=== PATIENT | male | born 1945 | race Caucasian/White ===

== ENCOUNTER 2018-11-25 08:17 | Emergency (ER) | payer MEDICARE, OTHER ==
[~2018-11-25] VITALS: Ht 175.3 cm; Wt 86.8 kg
[~2018-11-25 08:17] MED LIST: NO HOME MEDS
[2018-11-25 08:32] VITALS: BP 170/90
== END 2018-11-25 09:26 | disposition home or self-care (01) ==
LOC: ER 08:18
DX: M17.11 Unilateral primary osteoarthritis, right knee (principal)
CPT/HCPCS: 73564; 99283

== ENCOUNTER 2022-07-07 08:31 | Emergency (ER) | payer OTHER, MEDICARE ==
[~2022-07-07] VITALS: Ht 175.3 cm; Wt 84.1 kg
[2022-07-07 11:25] LABS: EOSINOPHILS # (AUTO) 0.2 X10'3 (0-0.9); EOSINOPHILS % (AUTO) 0.2 % (0-6); HEMATOCRIT 38.6 % (42.0-52.0)
[2022-07-07 11:31] LABS: BASOPHILS # (AUTO) 0.2 X10'3 (0-0.2); BASOPHILS % (AUTO) 0.2 % (0-1); HEMOGLOBIN 12.2 g/dl (14.0-17.9); LYMPHOCYTES # (AUTO) 3.9 X10'3 (1.1-4.8); MEAN CORPUSCULAR HGB CONC 31.6 g/dL (33.0-36.5); MEAN CORPUSCULAR VOLUME 85.4 FL (78-98); MEAN PLATELET VOLUME 8.9 FL (7.4-10.4); MONOCYTES # (AUTO) 0.8 X10'3 (0-0.9); MONOCYTES % (AUTO) 0.8 % (2-12); NEUTROPHILS % (AUTO) 94.8 % (42-75); PLATELET COUNT 195 X10'3 (140-440); RED BLOOD COUNT 4.51 X10'6 (4.70-6.10); RED CELL DISTRIBUTION WIDTH 19.4 % (11.5-14.5)
[2022-07-07 11:32] LABS: ALANINE AMINOTRANSFERASE 40 U/L (12-78); ALBUMIN 3.7 G/DL (3.4-5.0); ALBUMIN/GLOBULIN RATIO 0.8 (1.1-1.5); ALKALINE PHOSPHATASE 181 IU/L (46-116); ANION GAP 11 (8-16); ASPARTATE AMINO TRANSFERASE 49 U/L (10-37); BILIRUBIN,TOTAL 0.9 MG/DL (0.1-1.0); BLOOD UREA NITROGEN 15 MG/DL (7-18); BUN/CREATININE RATIO 16.3 (5.4-32.0); CALCIUM 9.5 MG/DL (8.5-10.1); CHLORIDE 102 MMOL/L (99-107); CREATININE 0.92 MG/DL (0.60-1.10); GLUCOSE 115 MG/DL (70-104); LIPASE 238 U/L (73-393); POTASSIUM 4.2 MMOL/L (3.5-5.1); SODIUM 142 MMOL/L (135-145); TOTAL CARBON DIOXIDE 29.5 MMOL/L (24-32); TOTAL PROTEIN 8.3 G/DL (6.4-8.2); eGFR 80 ML/MIN
[2022-07-07 11:53] LABS: WHITE BLOOD COUNT 98.1 X10'3 (4.5-11.0)
[2022-07-07 11:57] LABS: TOTAL CELLS COUNTED 100
[2022-07-07 11:59] LABS: PLATELET ESTIMATE NORMAL
[2022-07-07 12:03] LABS: ANISOCYTOSIS 2+; HYPOCHROMASIA 1+; NUCLEATED RED BLOOD CELLS 2 /100WBC (0-0); POLYCHROMASIA FEW; STOMATOCYTES FEW
[2022-07-07] MEDS ORDERED: iohexol 300mg/ml 100ml inj. ONE (13:51)
[2022-07-07 14:08] LABS: CLARITY,URINE CLEAR (Clear); COLOR,URINE YELLOW (Yellow); GLUCOSE, URINE NEGATIVE (Neg); KETONES,URINE NEGATIVE (Neg); LEUKOCYTE ESTERASE ,URINE NEGATIVE (Neg); NITRITES, URINE NEGATIVE (Neg); OCCULT BLOOD,URINE NEGATIVE (Neg); PROTEIN,URINE NEGATIVE (Neg); UROBILINOGEN,URINE 0.2 E.U/dL (0.2-1.0)
[2022-07-07 14:11] LABS: UA COLLECTION TYPE CLN CATCH MIDSTREAM
[2022-07-07 15:59] VITALS: BP 166/86
[2022-07-07] MEDS ORDERED: lactulose 20gm/30ml cup PO ONE (16:05)
[2022-07-07] MEDS ORDERED: magnesium citrate 296ml oral solution PO ONE (16:05)
[2022-07-07] MEDS ORDERED: magnesium hydroxide 30ml (MOM) UD suspension PO ONE (16:10)
== END 2022-07-07 18:04 | disposition home or self-care (01) ==
LOC: ER 08:32
DX: K59.00 Constipation, unspecified (principal); D72.829 Elevated white blood cell count, unspecified; E78.00 Pure hypercholesterolemia, unspecified; I10 Essential (primary) hypertension; Z87.891 Personal history of nicotine dependence
CPT/HCPCS: 36415; 71260; 74177; 80053; 81003; 83605; 83690; 83880; 84484; 85007; 85025; 87040; 93005; 99285; J3490; Q9967